=== PATIENT | male | born 1960 | race Caucasian/White ===

== ENCOUNTER 2020-09-14 07:16 | Day surgery (SDC) | payer BC ==
[~2020-09-14] VITALS: Ht 180.3 cm; Wt 74.9 kg
[2020-09-14] MEDS ORDERED: albumin 25% 100mL bottle x 1 IV PRN (07:55)
[2020-09-14 08:00] VITALS: BP 131/82
[2020-09-14] MEDS ORDERED: ONDA8TAB13 PO (08:02)
[2020-09-14] MEDS ORDERED: MORP-92 PO (08:02)
[2020-09-14] MEDS ORDERED: ALPR1TAB7 PO (08:02)
[2020-09-14] MEDS ORDERED: LIDO30CR23 (08:02)
[2020-09-14] MEDS ORDERED: HYDR-3972 PO (08:02)
[2020-09-14] MEDS ORDERED: PROC10TA10 PO (08:02)
[2020-09-14] MEDS ORDERED: ACET-1025 PO (08:02)
[2020-09-14] MEDS ORDERED: CLARITIN (08:03)
[2020-09-14 09:00] VITALS: BP 120/71
[2020-09-14 09:13] VITALS: BP 120/71
[2020-09-14 09:15] VITALS: BP 138/94
== END 2020-09-14 09:40 | disposition home or self-care (01) ==
LOC: SSTAY O 07:16
PROVIDERS: ATTEND Radiology Vascular & Interventional Radiology
DX: R18.8 Other ascites (principal); Z53.8 Procedure and treatment not carried out for other reasons; R14.0 Abdominal distension (gaseous); Z85.01 Personal history of malignant neoplasm of esophagus; Z92.21 Personal history of antineoplastic chemotherapy; G89.29 Other chronic pain; Z88.2 Allergy status to sulfonamides; Z93.1 Gastrostomy status; Z79.899 Other long term (current) drug therapy
CPT/HCPCS: 76705